=== PATIENT | female | born 1975 | race Caucasian/White ===

== ENCOUNTER → 2021-11-02 19:12 | Outpatient (CLI) | payer BC, SELFPAY ==
[2021-11-02 19:45] LABS: COVID19 -Nasal RAPID Negative (Negative)
== END ==
PROVIDERS: Family Provider Physician Assistant Medical; PCP Physician Assistant Medical; Visit Provider Physician Assistant
DX: Z20.822 Contact with and (suspected) exposure to COVID-19 (principal)
CPT/HCPCS: 87635